=== PATIENT | male | born 1990 | race Caucasian/White ===

== ENCOUNTER 2016-10-17 10:39 | Emergency (ER) | payer OTHER ==
[2016-10-17] MEDS ORDERED: IOPAMIDOL 300 (61%) 150 ML VIAL IV ONE (10:40)
[2016-10-17] MEDS ORDERED: ONDANSETRON 4 MG/2ML 2 ML VIAL ONE (11:46)
[2016-10-17] MEDS ORDERED: KETOROLAC TROMETHAMINE 30 MG/ML 1 ML VIAL ONE (11:46)
[2016-10-17] MEDS ORDERED: SODIUM CHLORIDE 0.9% 1,000 ML ONE ×2 (11:46→14:40)
[2016-10-17 11:54] LABS: ABSOLUTE NEUTROPHIL COUNT 3.9 K/mm3 (1.8-7.7); BASO # 0.1 K/mm3 (0.0-0.2); BASO % 0.8 % (0.2-1.0); EOS # 0.2 (0.0-0.5); EOS % 1.4 % (0.9-2.9); HEMATOCRIT 44.1 % (32.0-52.0); HEMOGLOBIN 14.4 gm/l (14.0-18.0); IMM NEUT% 0.3 % (0-1); LYMPH # 6.9 (1.0-4.8); LYMPH % 58.3 % (15-45); MEAN CELL VOLUME 89.5 fl (80.0-94.0); MEAN CORPUSCULAR HEMOGLOBIN 29.2 pg (27.0-31.0); MEAN CORPUSCULAR HGB CONC 32.7 g/dl (33.0-37.0); MEAN PLATELET VOLUME 10.2 fl (7.4-10.4); MONO # 0.8 (0.0-0.8); MONO % 6.3 % (4-12); NEUT % 32.9 % (43-75); PLATELET COUNT 267 K/mm3 (130-400); RED CELL DISTRIBUTION WIDTH 13.2 % (11.5-14.5); URINE BILIRUBIN NEGATIVE (NEGATIVE); URINE BLOOD NEGATIVE (NEGATIVE); URINE GLUCOSE (UA) NEGATIVE (NEGATIVE); URINE LEUKOCYTE ESTERASE NEGATIVE (NEGATIVE); URINE NITRITE NEGATIVE (NEGATIVE); URINE PROTEIN NEGATIVE (NEGATIVE); URINE UROBILINOGEN NORMAL (0-1 mg/dl)
[2016-10-17 11:57] LABS: URINE APPEARANCE CLEAR; URINE COLOR YELLOW
--- NOTE | 2016-10-17 12:23 | CT ---
ABD/PELVIS W/ CON COMPARISON: None. HISTORY: Left upper quadrant pain after eating 10/05/2016 and was seen as [place] and told the spleen was bleeding, discharged 10/08/2016, with continuous pain since then. Technique: No oral contrast. Intravenous injection 125 mL Isovue 300. Using a [email or web address] Aquilion [address] scanner, images were obtained from the diaphragm to the floor the pelvis. An automated dose reduction technique was used to minimize patient radiation dose. Dose information: CTDIvol (mGy): 7.00 DLP(mGycm): 354.20 FINDINGS: Lung bases: Normal. Inferior mediastinum and heart: Normal. Liver: Normal. Gallbladder:Normal. Bile ducts: Normal. Pancreas: Normal. Spleen: Lateral intracapsular hematoma, up to 13 cm anterior posterior by 5 cm medial lateral with extrinsic compression on the spleen. Normal enhancement of the spleen. No evidence of infarction. Adrenal glands: Normal. Kidneys: Normal. Ureters: Normal Urinary bladder: Normal. Prostate gland and seminal vesicles: Normal. Blood vessels: Normal Lymph nodes: Normal Stomach: Normal Duodenum: Normal Small intestine: Normal Appendix: Normal Colon: Normal Abdominal wall and supporting musculature: Normal Bones: Normal IMPRESSION: 1. 13 cm x 5 cm hematoma in the lateral splenic capsule with compression upon the spleen, but no evidence of splenic infarction. The report was sent to the emergency department electronic medical record system 10/17/2016 at 12:24
[2016-10-17 12:44] LABS: ALB/GLOB RATIO 1.3 (>1.0); CALCIUM 9.1 mg/dL (8.6-10.3)
[2016-10-17] MEDS ORDERED: MORPHINE SULFATE 4 MG/ML SYRINGE ONE (14:40)
== END 2016-10-17 15:45 | disposition short-term general hospital (02) ==
LOC: ED 10:39
DX: D73.5 Infarction of spleen (principal); F17.210 Nicotine dependence, cigarettes, uncomplicated
CPT/HCPCS: 82150; 85025; 80053; 85651; 81003; 74177; 96375 ×2; 99284; 96374; 96361 ×3; 99285; J2270; J1885; J2405; J7030 ×2; Q9967